=== PATIENT | female | born 1975 | race Caucasian/White ===

== ENCOUNTER 2023-10-06 10:34 | Inpatient (IN) | payer BC ==
[~2023-10-06 10:34] MED LIST: Iopamidol 370 76% 100 ML VIAL ONE
[2023-10-06 11:07] LABS: #Monocytes 0.7 10x3/uL (0.0-1.1); #Neutrophils 3.9 10x3/uL (1.5-8.4); %Basophils 0.4 % (0.0-2.0); %Lymphocytes 13.1 % (18.0-47.0); %Monocytes 13.1 % (0.0-10.0); %Neutrophils 72.3 % (40.0-75.0); Hematocrit 36.7 % (34.9-44.5); Hemoglobin 12.4 g/dL (12.0-15.5); Mean Corpuscular HGB CONC 33.8 g/dL (32.0-36.0); Mean Corpuscular Hemoglobin 28.9 pg (27.0-33.0); Mean Corpuscular Volume 85.5 fl (81.6-98.3); Mean Platelet Volume 9.1 fl (7.4-10.4); Platelet Count 179 10x3/uL (150-450); RBC Distribution Width 13.8 % (11.5-14.5); Red Blood Cell (RBC) Count 4.29 10x6/uL (3.90-5.03); White Blood Cell (WBC) Count 5.4 10x3/uL (3.5-10.5)
[2023-10-06 11:28] LABS: ALT (SGPT) 15 U/L (8-55); AST (SGOT) 18 U/L (5-34); Albumin 4.3 g/dL (3.5-5.0); Alkaline Phosphatase 49 U/L (40-110); Anion Gap 19 mmol/L (10-20); BUN (Urea Nitrogen) 22 mg/dL (7.0-18.7); Bilirubin, Total 0.3 mg/dL (0.2-1.2); Calc. Creatinine Clearance 0 mL/min (70-130); Calcium 9.1 mg/dL (7.8-10.44); Carbon Dioxide 27 mmol/L (22-29); Chloride 97 mmol/L (98-107); Estimated GFR 73; Globulin 2.4 g/dL (2.4-3.5); Glucose 160 mg/dL (70-105); Potassium 3.2 mmol/L (3.5-5.1); Protein, Total 6.7 g/dL (6.0-8.3); Sodium 140 mmol/L (136-145)
[2023-10-06 11:29] LABS: Troponin I Less than 0.010 ng/mL (< 0.028)
[2023-10-06 11:51] LABS: SARS-CoV-2 NAA Rapid Test Not Detected (NotDetected)
[2023-10-06] MEDS ORDERED: Azithromycin 500 MG VIAL ONE ×3 (12:04→12:20)
[2023-10-06] MEDS ORDERED: Potassium Chloride 20 MEQ TAB ONE (12:04)
[2023-10-06 13:11] LABS: Free T4 (Free Thyroxine) 0.85 ng/dL (0.70-1.48); Thyroid Stimulating Hormone 1.1132 uIU/mL (0.35-4.94)
[2023-10-06] MEDS ORDERED: Acetaminophen 650 MG Suppository PR PRN (14:21)
[2023-10-06] MEDS ORDERED: Dextrose 50% Abboject 50 ML SYRINGE SLOW IVP PRN (14:21)
[2023-10-06] MEDS ORDERED: Senokot S 8.6-50 MG TAB PO PRN (14:21)
[2023-10-06] MEDS ORDERED: Glucagon 1 MG/ML KIT IM PRN (14:21)
[2023-10-06] MEDS ORDERED: Dextrose 5% in Water 1,000 ML IV PRN (14:21)
[2023-10-06] MEDS ORDERED: HumaLOG 300 UNITS/3 ML VIAL SC PRN (14:21)
[2023-10-06] MEDS ORDERED: Calcium Carbonate 500 MG ChewTAB PO PRN (14:21)
[2023-10-06] MEDS ORDERED: Ipratropium/Albuterol 3 ML NEB NEB PRN (14:23)
[2023-10-06] MEDS ORDERED: Benzonatate 100 MG CAP PO PRN (14:23)
[2023-10-06] MEDS ORDERED: Sodium Chloride 0.9% 1,000 ML IV SCH (14:30)
[2023-10-06 14:47] LABS: Bilirubin Neg (Negative); Blood, Urine Negative (Negative); Clarity Clear (Clear); Glucose, Urine (Dipstick) Normal (Negative); Ketone, Urine 15 mg/dL (Negative); Leukocyte Negative (Negative); Nitrite Negative (Negative); Protein, Urine (Dipstick) 15 mg/dl (Neg-Trace); Urobilinogen Normal mg/dL (Less than 2)
[2023-10-06 14:59] LABS: Bacteria/HPF None Seen HPF (None Seen); CAUTI Indications for Culture Fever or rigors; Squamous Epithelial 0-3 HPF (0-3)
[2023-10-06 15:00] LABS: RBC/HPF None Seen HPF (0-3); Urine Culture Reflex No No; WBC/HPF None Seen HPF (0-3)
[2023-10-06] MEDS ORDERED: Ondansetron PF 4 MG/2 ML Vial IVP PRN (15:13)
[2023-10-06] MEDS ORDERED: cefTRIAXone (ROCEPHIN) 1 GM VIAL ONE (15:56)
[2023-10-06] MEDS ORDERED: Famotidine/PF 20 mg/2ml Vial ONE (15:57)
[2023-10-06] MEDS ORDERED: methylPREDNISolone Sod Succ 40 MG VIAL ONE (15:58)
[2023-10-06] MEDS ORDERED: methylPREDNISolone Sod Succ/PF 125 MG/2 ML VIAL IVP SCH (21:00)
[2023-10-06] MEDS ORDERED: 1/2 NS w/Potassium 20 mEq 1,000 ML IV SCH (22:00)
[2023-10-06] MEDS ORDERED: methylPREDNISolone Sod Succ 40 MG VIAL IVP SCH (22:00)
[2023-10-06] MEDS ORDERED: Famotidine 20 MG TAB PO SCH (22:15)
[2023-10-06 22:18] VITALS: BMI 39.4
[2023-10-06] MEDS ORDERED: FLU VACC QS2023-24(6MOS UP)/PF 60 MCG/0.5 ML SYRINGE IM ONE (23:00)
[2023-10-06] MEDS ORDERED: rOPINIRole HCl 2 MG TAB PO SCH (23:30)
[2023-10-06] MEDS ORDERED: Mirabegron ER 25 MG ER.TAB PO SCH (23:30)
[2023-10-06] MEDS ORDERED: Divalproex Sodium DR 500 MG TAB PO SCH (23:30)
[2023-10-06] MEDS ORDERED: Loratadine 10 MG TAB PO SCH (23:30)
[2023-10-06] MEDS ORDERED: Gabapentin 300 MG CAP PO SCH (23:30)
[2023-10-06] MEDS ORDERED: Lantus 1000 UNITS/10 ML VIAL SC SCH (23:30)
[2023-10-06] MEDS ORDERED: levETIRAcetam 500 MG TAB PO SCH (23:59)
[2023-10-07 04:29] LABS: Hematocrit 37.7 % (34.9-44.5); Hemoglobin 12.3 g/dL (12.0-15.5); MDiff Complete? YES; Mean Corpuscular HGB CONC 32.6 g/dL (32.0-36.0); Mean Corpuscular Volume 88.9 fl (81.6-98.3); Mean Platelet Volume 9.5 fl (7.4-10.4); Platelet Count 188 10x3/uL (150-450); RBC Distribution Width 13.8 % (11.5-14.5); Red Blood Cell (RBC) Count 4.24 10x6/uL (3.90-5.03); White Blood Cell (WBC) Count 5.9 10x3/uL (3.5-10.5)
[2023-10-07 04:37] LABS: Anion Gap 15 mmol/L (10-20); BUN (Urea Nitrogen) 14 mg/dL (7.0-18.7); Calc. Creatinine Clearance 134 mL/min (70-130); Calcium 8.7 mg/dL (7.8-10.44); Carbon Dioxide 30 mmol/L (22-29); Chloride 101 mmol/L (98-107); Estimated GFR 100; Glucose 259 mg/dL (70-105); Potassium 3.9 mmol/L (3.5-5.1); Sodium 142 mmol/L (136-145)
[2023-10-07 06:09] LABS: Band 14 % (5-11); Eosinophils 1 % (0-10); Lymphocytes 13 % (21-51); Metamyelocyte 3 % (0-0); Monocytes 2 % (0-10); Neutrophil 64 % (42-75); Reactive Lymphocytes 3 % (0-10)
[2023-10-07 06:11] LABS: RBC Morph Comment Within Normal Limits
[2023-10-07 06:12] LABS: Platelet Adequacy Comment Appears Adequate
[2023-10-07] MEDS: HumaLOG 300 UNITS/3 ML VIAL SC PRN ×2 (07:38→12:35)
[2023-10-07] MEDS: Enoxaparin 40 MG (0.4 mL) SYRINGE SC SCH (09:16)
[2023-10-07] MEDS: Famotidine 20 MG TAB PO SCH ×2 (09:17→21:13)
[2023-10-07] MEDS: methylPREDNISolone Sod Succ 40 MG VIAL IVP SCH ×3 (09:18→21:13)
[2023-10-07] MEDS: Azithromycin 500 MG in Sodium Chloride 0.9% 250 ML 250 ML IVPB SCH (13:34)
[2023-10-07] MEDS: cefTRIAXone\\ROCEPHIN 1 GM in Sodium Chloride 0.9% 100 ML IVPB SCH (15:48)
[2023-10-07] MEDS ORDERED: Ibuprofen 800 MG TAB PO SCH (18:15)
[2023-10-07] MEDS ORDERED: rOPINIRole HCl 1 MG TAB PO SCH (23:00)
[2023-10-07] MEDS ORDERED: levETIRAcetam 500 MG TAB PO SCH (23:00)
[2023-10-07] MEDS ORDERED: Divalproex Sodium 500 MG ER.TAB PO SCH (23:00)
[2023-10-08] MEDS ORDERED: Ibuprofen 800 MG TAB PO SCH (03:30)
[2023-10-08] MEDS: HumaLOG 300 UNITS/3 ML VIAL SC PRN ×4 (06:48→16:28)
[2023-10-08] MEDS ORDERED: Non-Formulary Medication 1 EACH (Semaglutide [Rybelsus] 14 MG Tablet) PO SCH (09:00)
[2023-10-08] MEDS ORDERED: Levothyroxine Sodium 75 MCG TAB PO SCH (09:00)
[2023-10-08] MEDS: Liothyronine Sodium 5 MCG TAB PO SCH (09:30)
[2023-10-08] MEDS: Levothyroxine Sodium 75 MCG TAB PO SCH (09:30)
[2023-10-08] MEDS: Folic Acid 1 MG TAB PO SCH (09:31)
[2023-10-08] MEDS: Atorvastatin Calcium 20 MG TAB PO SCH (09:34)
[2023-10-08] MEDS: Mirabegron ER 25 MG ER.TAB PO SCH (09:34)
[2023-10-08] MEDS: Famotidine 20 MG TAB PO SCH ×2 (09:34→20:36)
[2023-10-08] MEDS: Losartan 50 MG TAB PO SCH (09:34)
[2023-10-08] MEDS: Enoxaparin 40 MG (0.4 mL) SYRINGE SC SCH (09:36)
[2023-10-08] MEDS: methylPREDNISolone Sod Succ 40 MG VIAL IVP SCH (09:39)
[2023-10-08] MEDS: Amlodipine 5 MG TAB PO SCH (09:40)
[2023-10-08] MEDS: Azithromycin 500 MG in Sodium Chloride 0.9% 250 ML 250 ML IVPB SCH (14:40)
[2023-10-08] MEDS ORDERED: Naproxen 500 MG TAB PO PRN (14:56)
[2023-10-08] MEDS: cefTRIAXone\\ROCEPHIN 1 GM in Sodium Chloride 0.9% 100 ML IVPB SCH (16:18)
[2023-10-08] MEDS: metFORMIN 500 MG TAB PO SCH (16:23)
[2023-10-08] MEDS: Lantus 1000 UNITS/10 ML VIAL SC SCH (16:28)
[2023-10-08] MEDS ORDERED: Guaifenesin DM 100-10/5 ML UDCUP PO PRN (18:29)
[2023-10-08] MEDS: Divalproex Sodium 500 MG ER.TAB PO SCH (20:36)
[2023-10-08] MEDS: Gabapentin 300 MG CAP PO SCH (20:37)
[2023-10-08] MEDS: levETIRAcetam 500 mg/5 ml Oral Solution PO SCH (20:37)
[2023-10-08] MEDS: rOPINIRole HCl 1 MG TAB PO SCH (20:48)
[2023-10-08] MEDS ORDERED: levETIRAcetam 500 MG TAB PO SCH (21:00)
[2023-10-08] MEDS ORDERED: Lantus 1000 UNITS/10 ML VIAL SC SCH (21:00)
[2023-10-08] MEDS ORDERED: Divalproex Sodium 500 MG ER.TAB PO SCH (21:00)
[2023-10-08] MEDS ORDERED: rOPINIRole HCl 1 MG TAB PO SCH (21:00)
[2023-10-09] MEDS ORDERED: Ipratropium/Albuterol 3 ML NEB NEB SCH (05:00)
[2023-10-09 05:40] LABS: Hematocrit 39.6 % (34.9-44.5); Hemoglobin 12.8 g/dL (12.0-15.5); Mean Corpuscular HGB CONC 32.3 g/dL (32.0-36.0); Mean Corpuscular Hemoglobin 29.4 pg (27.0-33.0); Mean Platelet Volume 8.7 fl (7.4-10.4); Platelet Count 194 10x3/uL (150-450); RBC Distribution Width 13.9 % (11.5-14.5); Red Blood Cell (RBC) Count 4.35 10x6/uL (3.90-5.03); White Blood Cell (WBC) Count 7.7 10x3/uL (3.5-10.5)
[2023-10-09 05:52] LABS: MDiff Complete? YES
[2023-10-09 06:05] LABS: Anion Gap 15 mmol/L (10-20); BUN (Urea Nitrogen) 25 mg/dL (7.0-18.7); Calc. Creatinine Clearance 134 mL/min (70-130); Calcium 8.7 mg/dL (7.8-10.44); Carbon Dioxide 32 mmol/L (22-29); Chloride 102 mmol/L (98-107); Estimated GFR 100; Glucose 128 mg/dL (70-105); Magnesium 2.3 mg/dL (1.6-2.6); Potassium 4.2 mmol/L (3.5-5.1); Sodium 145 mmol/L (136-145)
[2023-10-09 06:07] LABS: Band 14 % (5-11); Lymphocytes 16 % (21-51); Monocytes 14 % (0-10); Neutrophil 55 % (42-75); Reactive Lymphocytes 1 % (0-10)
[2023-10-09 06:10] LABS: Ovalocytes SLIGHT = 2-5 cells (100X) (0-1/hpf); Platelet Adequacy Comment Appears Adequate
[2023-10-09 06:11] LABS: Troponin I Less than 0.010 ng/mL (< 0.028)
[2023-10-09] MEDS ORDERED: 1/2 NS w/Potassium 20 mEq 1,000 ML IV SCH (06:15)
[2023-10-09] MEDS: Enoxaparin 40 MG (0.4 mL) SYRINGE SC SCH (08:33)
[2023-10-09] MEDS: metFORMIN 500 MG TAB PO SCH ×2 (08:33→16:51)
[2023-10-09] MEDS: Losartan 50 MG TAB PO SCH (08:34)
[2023-10-09] MEDS: Famotidine 20 MG TAB PO SCH ×2 (08:34→21:30)
[2023-10-09] MEDS: Amlodipine 5 MG TAB PO SCH (08:34)
[2023-10-09] MEDS: Atorvastatin Calcium 20 MG TAB PO SCH (08:34)
[2023-10-09] MEDS: Folic Acid 1 MG TAB PO SCH (08:34)
[2023-10-09] MEDS: levETIRAcetam 500 mg/5 ml Oral Solution PO SCH ×3 (08:44→22:00)
[2023-10-09] MEDS: Liothyronine Sodium 5 MCG TAB PO SCH (08:46)
[2023-10-09] MEDS: Mirabegron ER 25 MG ER.TAB PO SCH (08:47)
[2023-10-09] MEDS: Acetaminophen 325 MG TAB PO PRN ×2 (08:58→17:10)
[2023-10-09 09:29] LABS: Actual Bicarbonate (HCO3a) 33.3 mEq/L (22-28); Analyzer IN Cardio CS ICU; Base Excess (BEa) 6.6 mEq/L (-2.0 to +3.0); CO2 Tension 57.6 mmHg (35.0-45.0); Calcium, Ionized (arterial) 1.15 mmol/L (1.12-1.30); Carboxyhemoglobin (COHb) 0.4 gm% (0.0-3.0); Hematocrit-ABG 37 % (36.0-47.0); Hemoglobin (Hb) 12.6 g/dL (12.0-16.0); O2 Tension (PaO2), arterial 62.1 mmHg (80.0-100.0); Potassium - ABG Lab 3.87 mmol/L (3.70-5.30); Puncture Site RBA
[2023-10-09 09:56] LABS: Troponin I Less than 0.010 ng/mL (< 0.028)
[2023-10-09] MEDS ORDERED: Furosemide 40 MG (4 mL) VIAL SLOW IVP SCH (11:00)
[2023-10-09] MEDS: Azithromycin 500 MG in Sodium Chloride 0.9% 250 ML 250 ML IVPB SCH (13:34)
[2023-10-09] MEDS: cefTRIAXone\\ROCEPHIN 1 GM in Sodium Chloride 0.9% 100 ML IVPB SCH (15:12)
[2023-10-09] MEDS: Lantus 1000 UNITS/10 ML VIAL SC SCH (16:23)
[2023-10-09] MEDS: rOPINIRole HCl 1 MG TAB PO SCH (21:28)
[2023-10-09] MEDS: Gabapentin 300 MG CAP PO SCH (21:28)
[2023-10-09] MEDS: Divalproex Sodium 500 MG ER.TAB PO SCH (21:29)
[2023-10-10] MEDS: Levothyroxine Sodium 75 MCG TAB PO SCH (06:35)
[2023-10-10 08:27] LABS: Anion Gap 13 mmol/L (10-20); BUN (Urea Nitrogen) 20 mg/dL (7.0-18.7); Calc. Creatinine Clearance 149 mL/min (70-130); Calcium 8.5 mg/dL (7.8-10.44); Carbon Dioxide 36 mmol/L (22-29); Chloride 100 mmol/L (98-107); Estimated GFR 108; Glucose 115 mg/dL (70-105); Potassium 3.8 mmol/L (3.5-5.1); Sodium 145 mmol/L (136-145)
[2023-10-10] MEDS ORDERED: predniSONE 20 MG TAB PO SCH (08:45)
[2023-10-10] MEDS ORDERED: Ipratropium/Albuterol 3 ML NEB NEB SCH (09:00)
[2023-10-10] MEDS: metFORMIN 500 MG TAB PO SCH ×2 (09:18→17:34)
[2023-10-10] MEDS: Acetaminophen 325 MG TAB PO PRN (09:18)
[2023-10-10] MEDS: Atorvastatin Calcium 20 MG TAB PO SCH (09:19)
[2023-10-10] MEDS: Famotidine 20 MG TAB PO SCH ×2 (09:19→20:54)
[2023-10-10] MEDS: Folic Acid 1 MG TAB PO SCH (09:19)
[2023-10-10] MEDS: Mirabegron ER 25 MG ER.TAB PO SCH (09:20)
[2023-10-10] MEDS: Amlodipine 5 MG TAB PO SCH (09:20)
[2023-10-10] MEDS: Liothyronine Sodium 5 MCG TAB PO SCH (09:20)
[2023-10-10] MEDS: Enoxaparin 40 MG (0.4 mL) SYRINGE SC SCH (09:21)
[2023-10-10] MEDS: Losartan 50 MG TAB PO SCH (09:21)
[2023-10-10] MEDS: levETIRAcetam 500 mg/5 ml Oral Solution PO SCH ×2 (09:24→20:56)
[2023-10-10 11:53] LABS: Strep pneumo Urine Ag NEGATIVE (NEGATIVE)
[2023-10-10] MEDS: HumaLOG 300 UNITS/3 ML VIAL SC PRN ×2 (12:34→17:35)
[2023-10-10] MEDS: Azithromycin 500 MG in Sodium Chloride 0.9% 250 ML 250 ML IVPB SCH (14:37)
[2023-10-10] MEDS: Ipratropium/Albuterol 3 ML NEB NEB SCH ×3 (15:15→21:54)
[2023-10-10] MEDS: cefTRIAXone\\ROCEPHIN 1 GM in Sodium Chloride 0.9% 100 ML IVPB SCH (16:25)
[2023-10-10] MEDS: Lantus 1000 UNITS/10 ML VIAL SC SCH (16:30)
[2023-10-10] MEDS: Gabapentin 300 MG CAP PO SCH (20:54)
[2023-10-10] MEDS: Divalproex Sodium 500 MG ER.TAB PO SCH (20:57)
[2023-10-10] MEDS: rOPINIRole HCl 1 MG TAB PO SCH (20:58)
[2023-10-10] MEDS: Budesonide 0.5 MG/2 ML NEB INH SCH ×2 (21:19→21:53)
[2023-10-11] MEDS ORDERED: Ziprasidone 20 MG VIAL IM SCH (05:00)
[2023-10-11 05:03] LABS: Anion Gap 15 mmol/L (10-20); BUN (Urea Nitrogen) 20 mg/dL (7.0-18.7); Calc. Creatinine Clearance 138 mL/min (70-130); Calcium 8.9 mg/dL (7.8-10.44); Carbon Dioxide 33 mmol/L (22-29); Chloride 100 mmol/L (98-107); Estimated GFR 103; Glucose 106 mg/dL (70-105); Potassium 3.5 mmol/L (3.5-5.1); Sodium 144 mmol/L (136-145)
[2023-10-11] MEDS ORDERED: Sterile Water 10 ML ONE (05:04)
[2023-10-11] MEDS: Levothyroxine Sodium 75 MCG TAB PO SCH (05:05)
[2023-10-11 05:06] LABS: Actual Bicarbonate (HCO3v) 35.4 mEq/L (22-28); Analyzer IN Cardio CS ICU; Base Excess 11.6 mEq/L (-2 - +2); Calcium, Ionized (venous) 1.04 mmol/L (1.16-1.32); Chloride (VBG) 99 mmol/L (98-106); Hematocrit-VBG 39 % (36.0-47.0); Hemoglobin (Hb) 13.2 g/dL (11.7-16.0); Potassium (VBG) 3.52 mmol/L (3.70-5.30); Puncture Site Other Site; RapidComm Collect By LAB; Sodium 143 mmol/L (133-146); pH (venous) 7.537 (7.32-7.43)
[2023-10-11] MEDS ORDERED: Potassium Chloride 20 MEQ TAB PO SCH (06:00)
[2023-10-11] MEDS: Amlodipine 5 MG TAB PO SCH (08:09)
[2023-10-11] MEDS: predniSONE 20 MG TAB PO SCH (08:09)
[2023-10-11] MEDS: metFORMIN 500 MG TAB PO SCH ×2 (08:09→17:12)
[2023-10-11] MEDS: Enoxaparin 40 MG (0.4 mL) SYRINGE SC SCH (08:10)
[2023-10-11] MEDS: Folic Acid 1 MG TAB PO SCH (08:10)
[2023-10-11] MEDS: Atorvastatin Calcium 20 MG TAB PO SCH (08:10)
[2023-10-11] MEDS: Losartan 50 MG TAB PO SCH (08:10)
[2023-10-11] MEDS: levETIRAcetam 500 mg/5 ml Oral Solution PO SCH ×2 (08:10→20:37)
[2023-10-11] MEDS: Famotidine 20 MG TAB PO SCH ×2 (08:10→20:36)
[2023-10-11] MEDS: Mirabegron ER 25 MG ER.TAB PO SCH (08:11)
[2023-10-11] MEDS: Liothyronine Sodium 5 MCG TAB PO SCH (08:11)
[2023-10-11] MEDS: Azithromycin 250 MG TAB PO SCH (10:20)
[2023-10-11] MEDS: Ipratropium/Albuterol 3 ML NEB NEB SCH ×3 (10:52→23:20)
[2023-10-11] MEDS: Budesonide 0.5 MG/2 ML NEB INH SCH ×2 (10:52→18:58)
[2023-10-11] MEDS: Acetaminophen 325 MG TAB PO PRN (12:56)
[2023-10-11] MEDS: Lantus 1000 UNITS/10 ML VIAL SC SCH (17:13)
[2023-10-11] MEDS: rOPINIRole HCl 1 MG TAB PO SCH (20:35)
[2023-10-11] MEDS: Divalproex Sodium 500 MG ER.TAB PO SCH (20:36)
[2023-10-11] MEDS: Gabapentin 300 MG CAP PO SCH (20:41)
[2023-10-12] MEDS: Levothyroxine Sodium 75 MCG TAB PO SCH (06:26)
[2023-10-12] MEDS: Budesonide 0.5 MG/2 ML NEB INH SCH (06:30)
[2023-10-12] MEDS: Ipratropium/Albuterol 3 ML NEB NEB SCH (06:30)
[2023-10-12] MEDS: Enoxaparin 40 MG (0.4 mL) SYRINGE SC SCH (08:03)
[2023-10-12] MEDS: levETIRAcetam 500 mg/5 ml Oral Solution PO SCH (08:03)
[2023-10-12] MEDS: Losartan 50 MG TAB PO SCH (08:04)
[2023-10-12] MEDS: metFORMIN 500 MG TAB PO SCH (08:04)
[2023-10-12] MEDS: Atorvastatin Calcium 20 MG TAB PO SCH (08:04)
[2023-10-12] MEDS: Mirabegron ER 25 MG ER.TAB PO SCH (08:04)
[2023-10-12] MEDS: predniSONE 20 MG TAB PO SCH (08:05)
[2023-10-12] MEDS: Amlodipine 5 MG TAB PO SCH (08:05)
[2023-10-12] MEDS: Liothyronine Sodium 5 MCG TAB PO SCH (08:05)
[2023-10-12] MEDS: Famotidine 20 MG TAB PO SCH (08:05)
[2023-10-12] MEDS: Folic Acid 1 MG TAB PO SCH (08:05)
[2023-10-12] MEDS: Azithromycin 250 MG TAB PO SCH (10:00)
[2023-10-12 13:24] VITALS: BP 137/73; TEMP 98.2
[2023-10-12 20:37] LABS: L.pneumophilia Abs <0.91 OD ratio (0.00-0.90)
[2023-10-12 22:12] LABS: Mycoplasma pneumoniae IgG AB 156 U/mL (0-99); Mycoplasma pneumoniae IgM AB Less than 770 U/mL (0-769)
== END 2023-10-12 14:37 | disposition home or self-care (01) | DRG 193 ==
LOC: CSHERS 10:34 → CSHERHOLD 13:52 → CSHTELE 17:24 → OBSVTOIN 10-08 13:07 → CSHTELE 10-09 04:08 → CSHICU 10-09 05:12 → CSHTELE 10-11 14:30
PROVIDERS: ADMIT Internal Medicine; ATTEND Internal Medicine
PROC: 4A033R1 Measurement of Arterial Saturation, Peripheral, Percutaneous Approach (ICD-10-PCS; principal; 2023-10-09)
PROC: 5A0945A Assistance with Respiratory Ventilation, 24-96 Consecutive Hours, High Flow/Velocity Cannula (ICD-10-PCS; 2023-10-09)
DX: J18.9 Pneumonia, unspecified organism (principal); J96.01 Acute respiratory failure with hypoxia; E66.2 Morbid (severe) obesity with alveolar hypoventilation; E87.1 Hypo-osmolality and hyponatremia; J44.1 Chronic obstructive pulmonary disease with (acute) exacerbation; I10 Essential (primary) hypertension; E78.5 Hyperlipidemia, unspecified; E87.6 Hypokalemia; I25.10 Atherosclerotic heart disease of native coronary artery without angina pectoris; E11.9 Type 2 diabetes mellitus without complications; G40.909 Epilepsy, unspecified, not intractable, without status epilepticus; Z79.899 Other long term (current) drug therapy; Z90.710 Acquired absence of both cervix and uterus; Z90.49 Acquired absence of other specified parts of digestive tract; Z11.52 Encounter for screening for COVID-19; Z68.39 Body mass index [BMI] 39.0-39.9, adult
CPT/HCPCS: 0241U; 36415; 36416; 36600; 71045; 71275; 80048; 80053; 81001; 82805; 83605; 83735; 83880; 84145; 84439; 84443; 84484; 85025; 86713; 87040; 87449; 87807; 93005; 93010; 93306; 94640; 94760; 94762; 96365; 96366; 96372; 96375; 96376; G0378; J0456; J0696; J1650; J1815; J1940; J2405; J2920; J3480; J3490; J7050; J7512; J7620; J7626; Q9967; S0028